=== PATIENT | female | born 1955 | race Caucasian/White ===

== ENCOUNTER → 2016-05-10 | Outpatient (CLI) | payer BC ==
[~2016-05-10] MED LIST: AMBIEN PO; ASPIRIN; ASPIRIN PO; ASPIRIN81 M1 PO; BACTROBAN22 GM TP; CIPRO HC OTIC S10 ML OT; CIPRO PO; HUMALOG100 U/ML; HUMALOG100 U/ML SUBQ; HUMULIN R100 U/ML SUBQ; HUMULIN SUBQ; HYDROCODON-ACE1 EAC7 PO; LANTUS100 U/ML; LANTUS100 U/ML SUBQ; LANTUS100 UNITS/ SUBQ; LORTAB 5/500 TA1 TA1 PO; NORVASC10 MG PO; PREVACID PO; TOPROL XL; TOPROL XL PO; VASOTEC; VASOTEC PO; VICODIN 5/500 T1 TAB; VICODIN 5/500 T1 TAB PO; ZOLOFT; ZOLOFT PO; ZYVOX600 MG PO
[2016-05-10 10:47] LABS: HEMATOCRIT 39.6 % (35.0-45.0); HEMOGLOBIN 12.8 gm/dL (12.0-16.0)
== END | disposition home or self-care (01) ==
LOC: CSSDAY 10:12
PROVIDERS: Specialist
DX: E83.111 Hemochromatosis due to repeated red blood cell transfusions (principal)
CPT/HCPCS: 36415; 85014; 85018; 99195; G0463

== ENCOUNTER → 2016-06-26 | Outpatient (CLI) | payer BC | END | disposition home or self-care (01) | LOC: CSSDAY 10:00 | DX: E83.111 Hemochromatosis due to repeated red blood cell transfusions (principal) | CPT/HCPCS: 99195; G0463 ==